=== PATIENT | female | born 1975 | race Caucasian/White ===

== ENCOUNTER → 2016-10-26 | Outpatient (CLI) | payer BC ==
--- NOTE | 2016-10-26 13:21 | MM ---
Reason for exam: clinical finding. History: Family history of breast cancer in maternal cousin at age 40 and breast cancer in paternal grandmother at age 45. Indicated problem(s): pain in the right breast. Physical Findings: Nurse did not find any significant physical abnormalities on exam. MG 3D Diag Mammo W/Cad RT CC and MLO view(s) were taken of the right breast. The breast tissue is heterogeneously dense. This may lower the sensitivity of mammography. Finding #1: There is a 9 mm mass in the inner quadrant, posterior position of the right breast. Finding #2: There are typically benign calcifications in the right breast. These results were verbally communicated with the patient and result sheet given to the patient on 10/26/16. ASSESSMENT: Incomplete: need additional imaging evaluation, BI-RAD 0 RECOMMENDATION: Ultrasound of the right breast.
--- NOTE | 2016-10-26 13:28 | USB ---
Reason for exam: additional evaluation requested from abnormal screening. History: Family history of breast cancer in maternal cousin at age 40 and breast cancer in paternal grandmother at age 45. US Breast Limited RT Right breast ultrasound demonstrates a 7 x 2 x 4mm mixed lesion at 4 o'clock and a 4 x 4 x 5mm solid lesion at the posterior nipple. These results were verbally communicated with the patient and result sheet given to the patient on 10/26/16. ASSESSMENT: Suspicious, BI-RAD 4 RECOMMENDATION: Stereotactic core biopsy of the right breast. Called with mammographic findings and has scheduled an appointment for the patient for 11/03/16 at 12:[address] Madsen. PRELIMINARY REPORT CALLED AND FAXED TO DR. MADSEN ON 10/26/16 AT 300/TP.
== END | disposition home or self-care (01) ==
LOC: RADMAMWWP 09:46
PROVIDERS: ATTEND Surgery
DX: R92.8 Other abnormal and inconclusive findings on diagnostic imaging of breast (principal); Z80.3 Family history of malignant neoplasm of breast
CPT/HCPCS: 76642; G0206; G0279

== ENCOUNTER → 2016-11-04 | Day surgery (SDC) | payer BC ==
--- NOTE | 2016-11-04 09:34 | MM ---
EXAMINATION TYPE: MG stereo VAD BX RT DATE OF EXAM: 11/04/2016 9:19 AM COMPARISON: Previous mammogram dated 10/26/2016 CLINICAL HISTORY: Abnormal mammogram TECHNIQUE: Stereotactic guided core biopsy of right breast. FINDINGS: The procedure of stereotactic guided core biopsy was explained to the patient. Benefits, alternatives, and risks were discussed. An informed consent was then obtained. [facility]. Shortness pathway was a CC approach. I performed the localization, then surgeon, Dr. Ismael He performed the remainder of the procedure. A vacuum assisted biopsy gun was used to obtain multiple core samples. The patient tolerated the procedure well without any immediate complication. The patient was kept in the radiology department for short stay after the procedure and then discharged home in stable condition. IMPRESSION: SUCCESSFUL, UNCOMPLICATED STEREOTACTIC GUIDED CORE BIOPSY OF AREA OF CONCERN IN THE RIGHT BREAST, FULL PATHOLOGY RESULTS TO FOLLOW. Pathology Results: Benign BREAST, RIGHT, CORE BIOPSY: FIBROADENOMA. BACKGROUND FIBROCYSTIC CHANGES INCLUDING FIBROSIS, CYSTS AND APOCRINE METAPLASIA. Recommendation Follow up mammogram of the right breast in 6 months. QUEENIE
--- NOTE | 2016-11-04 16:35 | PCN ---
DATE OF PROCEDURE: PRE-PROCEDURE DIAGNOSIS: Right breast mammographic density of concern. POST-PROCEDURE DIAGNOSIS: Right breast mammographic density of concern. PROCEDURE: Stereotactic core biopsy, right breast density. PROCEDURE: Patient was taken to the stereotactic core room. The area of concern in the right breast was localized. Lidocaine 1% was used to anesthetize the area of concern. Needle was driven to the correct coordinates and multiple core biopsies were obtained. The specimen did appear to contain firmer tissue which appeared to be consistent with the area of concern. Following obtaining the specimens, a marking clip was left behind. Patient tolerated procedure in stable condition. Specimen was sent to Pathology for evaluation.
== END ==
LOC: RADMAMWWP 07:44
PROVIDERS: ATTEND Surgery
DX: D24.1 Benign neoplasm of right breast (principal); N60.31 Fibrosclerosis of right breast; N60.81 Other benign mammary dysplasias of right breast; N64.89 Other specified disorders of breast; R92.8 Other abnormal and inconclusive findings on diagnostic imaging of breast; Z88.1 Allergy status to other antibiotic agents; Z88.8 Allergy status to other drugs, medicaments and biological substances
CPT/HCPCS: 88305; 19081; A4648

== ENCOUNTER → 2016-11-07 | Day surgery (SDC) | payer BC ==
[~2016-11-07] MED LIST: ALPRAZolam 0.25 MG TAB ONE; BACITRACIN OINT 1 EACH PACKET TOPICAL ONE; LIDOCAINE 1% INJ 10MG/ML (20 ML MDV) ONE; LIDOCAINE 1%-EPI 1:100,000 20 ML VIAL ONE; SODIUM BICARB 4% 5 ML VIAL (0.48 MEQ/ML) ONE
--- NOTE | 2016-11-07 11:27 | USB ---
EXAMINATION TYPE: US biopsy breast VAD RT DATE OF EXAM: 11/07/2016 11:05 AM CLINICAL HISTORY: R92.8 ABN MAMMOGRAM. TECHNIQUE: Ultrasound guided core biopsy of right breast. COMPARISON: Previous ultrasound dated 10/26/2016. FINDINGS: The procedure of ultrasound guided core biopsy was explained to the patient. Benefits, alternatives, and risks were discussed. An informed consent was then obtained. The patient was placed in supine positioning for imaging and for the procedure. The overlying skin was prepped and draped in usual sterile fashion. Lidocaine buffered with bicarbonate was used as anesthetic into the skin and subcutaneous tissue up to area of concern in the right breast. A teena was made with surgical scalpel. Under ultrasound guidance, a 12-gauge vacuum assisted biopsy gun device was used to obtain 6 core samples. Following this, a biopsy clip was left in lesion. The patient tolerated the procedure well without any immediate complication. The patient was kept in the radiology department for short stay after the procedure and then discharged home in stable condition. Pathology is pending. IMPRESSION: Successful, uncomplicated ultrasound guided core biopsy of area of concern in the right breast, full pathology results to follow. Pathology Results: Benign BREAST, CORE BIOPSY: FIBROCYSTIC CHANGES INCLUDING FIBROSIS, CYSTS AND MILD USUAL TYPE DUCTAL HYPERPLASIA. Recommendation Follow up ultrasound of the right breast in 6 months. EMILYD
== END ==
LOC: RADUSWWP 09:40
PROVIDERS: ATTEND Surgery
DX: N60.31 Fibrosclerosis of right breast (principal); N60.91 Unspecified benign mammary dysplasia of right breast; N64.89 Other specified disorders of breast; R92.8 Other abnormal and inconclusive findings on diagnostic imaging of breast; Z88.1 Allergy status to other antibiotic agents; Z88.8 Allergy status to other drugs, medicaments and biological substances
CPT/HCPCS: 88305; 19083; J2001

== ENCOUNTER → 2017-03-20 | Outpatient (CLI) | payer BC ==
--- NOTE | 2017-03-20 10:36 | US ---
EXAMINATION TYPE: US abdomen complete DATE OF EXAM: 03/20/2017 COMPARISON: NONE CLINICAL HISTORY: R10.84 ABD PAIN. EXAM MEASUREMENTS: Liver Length: 16.4 cm Gallbladder Wall: 0.1 cm CBD: 0.5 cm Spleen: 10.9 cm Right Kidney: 11.5 x 5.9 x 6.8 cm Left Kidney: 12.9 x 5.6 x 7.5 cm Pancreas: wnl Liver: Coarse echotexture, no masses Gallbladder: stones Evidence for sonographic Marrero's sign: yes CBD: wnl Spleen: wnl Right Kidney: No hydronephrosis or masses seen Left Kidney: wnl Upper IVC: wnl Abd Aorta: wnl Coarse echotexture of liver with no definitive mass. Gall stones. The liver is somewhat coarsened. The intrahepatic portion of the IVC and proximal abdominal aorta ar e within normal limits. There is evidence of cholelithiasis. Common bile duct is unremarkable. The visualized portions of the pancreas are homogenous. The spleen is unremarkable. Kidneys are symmet kei and free of hydronephrosis. No renal lesions are seen. IMPRESSION: 1. Cholelithiasis 2. Nonspecific pattern of liver can be seen with fatty infiltration, hepatitis or hepatocellular dise ase.
[2017-03-20 11:09] LABS: Basophils % (A) 1 %; CH 30.9; CHCM 34.3; Eosinophils # (A) 0.1 k/uL (0-0.7); Eosinophils % (A) 2 %; HCT 44.6 % (34.0-46.0); HDW 2.59; HGB 14.6 gm/dL (11.4-16.0); Luc # (Auto) 0.11; Luc % (Auto) 2; Lymphocytes # (A) 1.7 k/uL (1.0-4.8); Lymphocytes % (A) 29 %; MCH 29.7 pg (25.0-35.0); MCHC 32.8 g/dL (31.0-37.0); MCV 90.5 fL (80.0-100.0); Mean Platelet Volume 7.3; Monocytes # (A) 0.3 k/uL (0-1.0); Monocytes % (A) 5 %; Neutrophils # (A) 3.6 k/uL (1.3-7.7); Neutrophils % (A) 61 %; RBC 4.93 m/uL (3.80-5.40); RDW 13.5 % (11.5-15.5); WBC 5.8 k/uL (3.8-10.6); WBC (Perox) 5.93
[2017-03-20 11:32] LABS: ALT 69 U/L (9-52); AST 51 U/L (14-36); Alkaline Phosphatase 63 U/L (38-126); Amylase 54 U/L (30-110); Anion Gap 12 mmol/L; Blood Urea Nitrogen 12 mg/dL (7-17); Calcium 9.7 mg/dL (8.4-10.2); Carbon Dioxide 26 mmol/L (22-30); Chloride 104 mmol/L (98-107); Cholesterol 174 mg/dL (<200); Glucose 89 mg/dL (74-99); HDL Cholesterol 41 mg/dL (40-60); Non-African American GFR(MDRD) >60 (>60 ml/min/1.73 sqM); Potassium 4.5 mmol/L (3.5-5.1); Sodium 142 mmol/L (137-145); Total Bilirubin 0.6 mg/dL (0.2-1.3); Total Protein 6.7 g/dL (6.3-8.2)
== END | disposition home or self-care (01) ==
LOC: RADUSWWP 09:55
PROVIDERS: ATTEND Internal Medicine Geriatric Medicine
DX: K80.20 Calculus of gallbladder without cholecystitis without obstruction (principal); R10.84 Generalized abdominal pain; N95.1 Menopausal and female climacteric states; E78.4 Other hyperlipidemia; F90.9 Attention-deficit hyperactivity disorder, unspecified type
CPT/HCPCS: 76700; 80053; 80061; 82150; 83001; 83002; 83690; 84439; 84443; 85025

== ENCOUNTER 2017-04-09 18:39 | Observation (INO) | payer BC ==
[2017-04-09] MEDS ORDERED: SODIUM CHLORIDE 0.9% 1,000 ML IV STA (19:01)
[2017-04-09] MEDS ORDERED: HYDROmorphone 1 MG/ML 1 ML SYRINGE IVP STA ×2 (19:01→19:50)
--- NOTE | 2017-04-09 19:04 | ED ---
Abdominal Pain HPI - General Chief Complaint: Abdominal Pain Stated Complaint: ABD pain Time Seen by Provider: 04/09/17 18:52 Source: patient, RN notes reviewed Mode of arrival: ambulatory Limitations: no limitations - History of Present Illness Initial Comments: 41-year-old female presents emergency Department chief complaint increased abdominal pain. Patient states she was diagnosed with stones and has surgery scheduled for April [address] Fernandez. She states the last night she had increased pain states that the pain has gotten worse. Patient states that she' s been vomiting throughout the night and did call Dr. Fernandez today who recommended to go to the emergency Department to have her labs checked, possibly start antibiotics and surgery for tomorrow. Patient states that she was in [facility] and had to drive back. She states pain is not worsened does radiate to her back. She denies any chest pain or shortness breath. Denies any diarrhea, constipation, fever, chills, dysuria or hematuria. She states that she has been on a more liquid diet as directed by Dr. Fernandez and she states this is not helping. - Related Data Home Medications Medication Instructions Recorded Confirmed Methylphenidate HCl [Concerta] 36 mg PO DAILY PRN 06/22/16 04/09/17 Methylphenidate HCl [Concerta] 18 mg PO DAILY 04/09/17 04/09/17 Varenicline [Chantix] 1 mg PO HS 04/09/17 04/09/17 Allergies Allergy/AdvReac Type Severity Reaction Status Date / Time loracarbef [From Lorabid] Allergy Unknown Verified 04/09/17 19:41 metronidazole [From Flagyl] Allergy Swelling Verified 04/09/17 19:41 amoxicillin AdvReac Nausea & Verified 04/09/17 19:41 Vomiting Review of Systems ROS Statement: Those systems with pertinent positive or pertinent negative responses have been documented in the HPI. ROS Other: All systems not noted in ROS Statement are negative. Past Medical History Past Medical History: No Reported History History of Any Multi-Drug Resistant Organisms: None Reported Past Surgical History: Orthopedic Surgery Additional Past Surgical History / Comment(s): bladder sling carpel tunnel dental implant Past Psychological History: Anxiety, Depression Smoking Status: Current every day smoker Past Alcohol Use History: None Reported Past Drug Use History: None Reported General Exam Limitations: no limitations General appearance: alert, in no apparent distress Head exam: Present: atraumatic, normocephalic, normal inspection Neck exam: Present: normal inspection, full ROM. Absent: tenderness, meningismus, lymphadenopathy Respiratory exam: Present: normal lung sounds bilaterally. Absent: respiratory distress, wheezes, rales, rhonchi, stridor Cardiovascular Exam: Present: regular rate, normal rhythm, normal heart sounds. Absent: systolic murmur, diastolic murmur, rubs, gallop, clicks GI/Abdominal exam: Present: soft, tenderness (Mild to moderate RUQ tenderness), normal bowel sounds. Absent: distended, guarding, rebound, rigid Course Vital Signs 04/09/17 18:45 Temperature 98.6 F Pulse Rate 77 Respiratory 20 Rate Blood Pressure 151/89 O2 Sat by Pulse 99 Oximetry Medical Decision Making - Medical Decision Making Dr. Fernandez did contact me in the emergency Department regarding her patient. Patient will be admitted to her service on IV antibiotics, IV fluids and scheduled for surgery tomorrow. Disposition Clinical Impression: Cholelithiasis, Intractable abdominal pain, Nausea & vomiting Disposition: ADMITTED IP TO THIS HOSP Condition: Fair Referrals: Alexandre Cano MD [Primary Care Provider] - 1-2 days
[2017-04-09] MEDS: ONDANSETRON 4 MG/2 ML VIAL IVP STA (19:22)
[2017-04-09 19:45] LABS: Basophils % (A) 0 %; CH 31.3; CHCM 35.1; Eosinophils # (A) 0.1 k/uL (0-0.7); Eosinophils % (A) 1 %; HCT 43.8 % (34.0-46.0); HDW 2.59; HGB 14.6 gm/dL (11.4-16.0); Luc # (Auto) 0.12; Luc % (Auto) 2; Lymphocytes # (A) 1.2 k/uL (1.0-4.8); Lymphocytes % (A) 17 %; MCH 29.9 pg (25.0-35.0); MCHC 33.3 g/dL (31.0-37.0); MCV 89.7 fL (80.0-100.0); Mean Platelet Volume 7.8; Monocytes # (A) 0.4 k/uL (0-1.0); Monocytes % (A) 5 %; Neutrophils # (A) 5.5 k/uL (1.3-7.7); Neutrophils % (A) 76 %; RBC 4.88 m/uL (3.80-5.40); RDW 13.6 % (11.5-15.5); WBC 7.3 k/uL (3.8-10.6); WBC (Perox) 6.84
[2017-04-09 19:47] LABS: Partial Thromboplastin Time 22.6 sec (22.0-30.0); Prothrombin Time 9.8 sec (9.0-12.0)
[2017-04-09] MEDS ORDERED: NALOXONE 0.4 MG/ML 1 ML VIAL IV PRN (19:48)
[2017-04-09] MEDS ORDERED: ONDANSETRON 4 MG/2 ML VIAL IVP PRN (19:48)
[2017-04-09 19:50] LABS: ALT 496 U/L (9-52); AST 555 U/L (14-36); Alkaline Phosphatase 82 U/L (38-126); Amylase 50 U/L (30-110); Anion Gap 9 mmol/L; Blood Urea Nitrogen 12 mg/dL (7-17); Calcium 9.9 mg/dL (8.4-10.2); Carbon Dioxide 21 mmol/L (22-30); Chloride 109 mmol/L (98-107); Glucose 101 mg/dL (74-99); Non-African American GFR(MDRD) >60 (>60 ml/min/1.73 sqM); Potassium 4.2 mmol/L (3.5-5.1); Sodium 139 mmol/L (137-145); Total Bilirubin 0.9 mg/dL (0.2-1.3); Total Protein 6.9 g/dL (6.3-8.2)
[2017-04-09] MEDS ORDERED: LACTATED RINGERS 1,000 ML IV ONE (19:51)
[2017-04-09] MEDS ORDERED: PIPERACILLIN-TAZOBACTAM 3.375 GM in DEXTROSE/WATER 1 50ML.BAG IVPB STA (19:52)
[2017-04-09] MEDS ORDERED: LEVOFLOXACIN 750MG-D5W PMX 750 MG in DEXTROSE/WATER 1 150ML.BAG IVPB STA (19:53)
[2017-04-09 20:01] LABS: Appearance,Urine Clear (Clear); Bacteria,Urine Rare /hpf; Bilirubin,Urine Negative (Negative); Glucose,Urine (UA) Negative (Negative); Ketones,Urine Negative (Negative); Leukocyte Esterase,Urine Small (Negative); Mucus,Urine Rare /hpf; Nitrite,Urine Negative (Negative); Particle Count 3328; Protein,Urine Negative (Negative); Specific Gravity,Urine 1.014 (1.001-1.035); Squamous Epithelial Cell,Urine <1 /hpf (0-4); UA Billing (MACRO vs. MICRO) MICRO; Urobilinogen,Urine <2.0 mg/dL (<2.0); WBC,Urine 1 /hpf (0-5)
[2017-04-09] MEDS: SODIUM CHLORIDE 0.9% 1,000 ML IV SCH (21:54)
[2017-04-09] MEDS: HYDROmorphone 1 MG/ML 1 ML SYRINGE IV PRN (22:38)
[2017-04-09] MEDS: ALPRAZolam 0.5 MG TAB PO PRN (23:39)
[2017-04-10 00:18] VITALS: BMI 34.0
[2017-04-10] MEDS: PIPERACILLIN-TAZOBACTAM 3.375 GM in DEXTROSE/WATER 1 50ML.BAG IVPB SCH ×3 (00:24→15:03)
[2017-04-10] MEDS ORDERED: PIPERACILLIN-TAZOBACTAM 3.375 GM in DEXTROSE/WATER 1 50ML.BAG IVPB SCH (02:00)
[2017-04-10] MEDS: SODIUM CHLORIDE 0.9% 1,000 ML IV SCH ×2 (08:32→13:21)
[2017-04-10 09:00] LABS: Basophils % (A) 1 %; CH 31.2; CHCM 34.3; Eosinophils # (A) 0.1 k/uL (0-0.7); Eosinophils % (A) 2 %; HCT 41.8 % (34.0-46.0); HDW 2.58; HGB 13.5 gm/dL (11.4-16.0); Luc # (Auto) 0.09; Luc % (Auto) 2; Lymphocytes # (A) 1.5 k/uL (1.0-4.8); Lymphocytes % (A) 31 %; MCH 29.7 pg (25.0-35.0); MCHC 32.4 g/dL (31.0-37.0); MCV 91.5 fL (80.0-100.0); Mean Platelet Volume 8.5; Monocytes # (A) 0.3 k/uL (0-1.0); Monocytes % (A) 6 %; Neutrophils # (A) 2.9 k/uL (1.3-7.7); Neutrophils % (A) 59 %; RBC 4.56 m/uL (3.80-5.40); RDW 13.5 % (11.5-15.5); WBC 4.9 k/uL (3.8-10.6)
--- NOTE | 2017-04-10 09:04 | P.GSHP ---
<Devorah Alves M - Last Filed: 04/10/17 09:05> History of Present Illness H&P Date: 04/10/17 Chief Complaint: Abdominal pain 41-year-old female presented to the emergency room on the day of admission with a chief complaint of developing "excruciating sharp constant right upper quadrant abdominal pain radiating across the abdomen". Patient states she had [place] when she woke up at 3 in the morning with a sharp excruciating pain could not tolerated. Patient states she was diagnosed with gallstones and was scheduled to have surgery on April [address] fernandez . Patient stated that she just could not tolerate the pain left her cabin and drove down to the [facility] emergency room to be evaluated for the above-mentioned symptoms patient stated the pain was excruciating cause a sensation of nausea. Patient states that there was no fever chills burning on urination frequency urgency. Patient states that she was not experiencing any diarrhea or constipation. Patient states that she has been consistent with the high-protein liquid diet for the past several weeks and has lost a couple pounds. Currently the patient is aware of the plan of care is scheduled this morning for a lap cholecystectomy per . Patient does state the pain medication is effective for pain control. Patient currently is denying any chest pain dizziness or lightheadedness or shortness of breath when questioning - Review of Systems Comment: Essentially unremarkable except as mentioned in the present illness Past Medical History Past Medical History: No Reported History History of Any Multi-Drug Resistant Organisms: None Reported Past Surgical History: Orthopedic Surgery Additional Past Surgical History / Comment(s): bladder sling,carpel tunnel, dental implant,right knee laproscopic,bilateral breast biopsy with right titanium pin implant Past Anesthesia/Blood Transfusion Reactions: No Reported Reaction Additional Past Anesthesia/Blood Transfusion Reaction / Comment(s): no history of blood transfusion Past Psychological History: Anxiety, Depression Smoking Status: Current some day smoker Past Alcohol Use History: None Reported Past Drug Use History: None Reported - Past Family History Mother Family Medical History: Diabetes Mellitus, Hypertension Father Family Medical History: Myocardial Infarction ([place]) Medications and Allergies Home Medications Medication Instructions Recorded Confirmed Type Methylphenidate HCl [Concerta] 36 mg PO DAILY PRN 06/22/16 04/09/17 History ALPRAZolam [Xanax] 1 mg PO Q8HR PRN 04/09/17 04/09/17 History Methylphenidate HCl [Concerta] 18 mg PO DAILY 04/09/17 04/09/17 History Varenicline [Chantix] 1 mg PO HS 04/09/17 04/09/17 History Allergies Allergy/AdvReac Type Severity Reaction Status Date / Time loracarbef [From Lorabid] Allergy Unknown Verified 04/10/17 09:32 metronidazole [From Flagyl] Allergy Swelling Verified 04/10/17 09:32 amoxicillin AdvReac Nausea & Verified 04/10/17 09:32 Vomiting Surgical - Exam Vital Signs Temp Pulse Resp BP Pulse Ox 98.6 F 77 20 151/89 99 04/09/17 18:45 04/09/17 18:45 04/09/17 18:45 04/09/17 18:45 04/09/17 18:45 GENERAL APPEARANCE: 41-year-old female patient is alert, oriented, in no acute distress. States just received pain medication which is effective for pain control VITAL SIGNS: Reviewed HEENT: Head is normocephalic and atraumatic. Pupils are equal and reactive. The nares are patent. Oropharynx is clear without lesions. NECK: Supple without lymphadenopathy. Traches midline. HEART: S1, S2. Regular rate and rhythm. No murmur noted denying chest pain when questioning LUNGS: No crackles or wheezes are heard. Adequate air movement bilaterally on room air ABDOMEN: Soft, slight tenderness to the right upper quadrant nondistended with good bowel sounds. No peritoneal signs. No palpable organomegaly or masses. Currently denying any loose stools constipation or change in bowel habits reports a nausea sensation no active emesis EXTREMITIES: Normal skin color and turgor. No cyanosis, rash, ulceration, clubbing or edema. Radial pedal pulses are 2/4 bilaterally. NEUROLOGICAL: No focal deficits. Strength and sensation are grossly intact. Results - Labs 04/09/17 19:15 04/09/17 19:15 Abnormal Lab Results - Last 24 Hours (Table) 04/09/17 04/09/17 Range/Units 19:15 19:15 Chloride 109 H (98-107) mmol/L Carbon Dioxide 21 L (22-30) mmol/L Glucose 101 H (74-99) mg/dL AST 555 H (14-36) U/L ALT 496 H (9-52) U/L Ur Leukocyte Esterase Small H (Negative) Urine Bacteria Rare H (None) /hpf Urine Mucus Rare H (None) /hpf Diabetes panel 04/09/17 Range/Units 19:15 Sodium 139 (137-145) mmol/L Potassium 4.2 (3.5-5.1) mmol/L Chloride 109 H (98-107) mmol/L Carbon Dioxide 21 L (22-30) mmol/L BUN 12 (7-17) mg/dL Creatinine 0.60 (0.52-1.04) mg/dL Glucose 101 H (74-99) mg/dL Calcium 9.9 (8.4-10.2) mg/dL AST 555 H (14-36) U/L ALT 496 H (9-52) U/L Alkaline Phosphatase 82 (38-126) U/L Total Protein 6.9 (6.3-8.2) g/dL Albumin 4.4 (3.5-5.0) g/dL Calcium panel 04/09/17 Range/Units 19:15 Calcium 9.9 (8.4-10.2) mg/dL Albumin 4.4 (3.5-5.0) g/dL Pituitary panel 04/09/17 Range/Units 19:15 Sodium 139 (137-145) mmol/L Potassium 4.2 (3.5-5.1) mmol/L Chloride 109 H (98-107) mmol/L Carbon Dioxide 21 L (22-30) mmol/L BUN 12 (7-17) mg/dL Creatinine 0.60 (0.52-1.04) mg/dL Glucose 101 H (74-99) mg/dL Calcium 9.9 (8.4-10.2) mg/dL Adrenal panel 04/09/17 Range/Units 19:15 Sodium 139 (137-145) mmol/L Potassium 4.2 (3.5-5.1) mmol/L Chloride 109 H (98-107) mmol/L Carbon Dioxide 21 L (22-30) mmol/L BUN 12 (7-17) mg/dL Creatinine 0.60 (0.52-1.04) mg/dL Glucose 101 H (74-99) mg/dL Calcium 9.9 (8.4-10.2) mg/dL Total Bilirubin 0.9 (0.2-1.3) mg/dL AST 555 H (14-36) U/L ALT 496 H (9-52) U/L Alkaline Phosphatase 82 (38-126) U/L Total Protein 6.9 (6.3-8.2) g/dL Albumin 4.4 (3.5-5.0) g/dL Assessment and Plan Plan: Impression Present on admission acute intractable episode of diffuse abdominal pain right upper quadrant nausea vomiting suspect due to cholelithiasis Present on admission elevated AST and ALT Current every day smoker on chantix Anxiety nonspecifieed History of attention deficit on concerta Plan Continue nothing by mouth scheduled for a lap cholecystectomy possible open per IV Zosyn as ordered Pain control DVT and GI prophylaxis IV fluid as ordered Further recommendations pending The above impression and plan of care have been discussed and directed by signing physician. Devorah Alves nurse practitioner acting as scribe for signing physician. <Emily Fernandez - Last Filed: 04/10/17 10:06> Surgical - Exam Vital Signs Temp Pulse Resp BP Pulse Ox 98.6 F 77 20 151/89 99 04/09/17 18:45 04/09/17 18:45 04/09/17 18:45 04/09/17 18:45 04/09/17 18:45 Results - Labs 04/10/17 08:44 04/10/17 08:44 Abnormal Lab Results - Last 24 Hours (Table) 04/09/17 04/09/17 04/10/17 Range/Units 19:15 19:15 08:44 Chloride 109 H 109 H (98-107) mmol/L Carbon Dioxide 21 L (22-30) mmol/L Glucose 101 H (74-99) mg/dL AST 555 H 238 H (14-36) U/L ALT 496 H 343 H (9-52) U/L Total Protein 5.8 L (6.3-8.2) g/dL Ur Leukocyte Esterase Small H (Negative) Urine Bacteria Rare H (None) /hpf Urine Mucus Rare H (None) /hpf Diabetes panel 04/09/17 04/10/17 Range/Units 19:15 08:44 Sodium 139 140 (137-145) mmol/L Potassium 4.2 4.0 (3.5-5.1) mmol/L Chloride 109 H 109 H (98-107) mmol/L Carbon Dioxide 21 L 23 (22-30) mmol/L BUN 12 9 (7-17) mg/dL Creatinine 0.60 0.80 (0.52-1.04) mg/dL Glucose 101 H 89 (74-99) mg/dL Calcium 9.9 8.7 (8.4-10.2) mg/dL AST 555 H 238 H (14-36) U/L ALT 496 H 343 H (9-52) U/L Alkaline Phosphatase 82 57 (38-126) U/L Total Protein 6.9 5.8 L (6.3-8.2) g/dL Albumin 4.4 3.6 (3.5-5.0) g/dL Calcium panel 04/09/17 04/10/17 Range/Units 19:15 08:44 Calcium 9.9 8.7 (8.4-10.2) mg/dL Albumin 4.4 3.6 (3.5-5.0) g/dL Pituitary panel 04/09/17 04/10/17 Range/Units 19:15 08:44 Sodium 139 140 (137-145) mmol/L Potassium 4.2 4.0 (3.5-5.1) mmol/L Chloride 109 H 109 H (98-107) mmol/L Carbon Dioxide 21 L 23 (22-30) mmol/L BUN 12 9 (7-17) mg/dL Creatinine 0.60 0.80 (0.52-1.04) mg/dL Glucose 101 H 89 (74-99) mg/dL Calcium 9.9 8.7 (8.4-10.2) mg/dL Adrenal panel 04/09/17 04/10/17 Range/Units 19:15 08:44 Sodium 139 140 (137-145) mmol/L Potassium 4.2 4.0 (3.5-5.1) mmol/L Chloride 109 H 109 H (98-107) mmol/L Carbon Dioxide 21 L 23 (22-30) mmol/L BUN 12 9 (7-17) mg/dL Creatinine 0.60 0.80 (0.52-1.04) mg/dL Glucose 101 H 89 (74-99) mg/dL Calcium 9.9 8.7 (8.4-10.2) mg/dL Total Bilirubin 0.9 0.8 (0.2-1.3) mg/dL AST 555 H 238 H (14-36) U/L ALT 496 H 343 H (9-52) U/L Alkaline Phosphatase 82 57 (38-126) U/L Total Protein 6.9 5.8 L (6.3-8.2) g/dL Albumin 4.4 3.6 (3.5-5.0) g/dL Assessment and Plan Plan: Plan for lap seng possible open
[2017-04-10 09:16] LABS: ALT 343 U/L (9-52); AST 238 U/L (14-36); Alkaline Phosphatase 57 U/L (38-126); Amylase 43 U/L (30-110); Anion Gap 8 mmol/L; Blood Urea Nitrogen 9 mg/dL (7-17); Calcium 8.7 mg/dL (8.4-10.2); Carbon Dioxide 23 mmol/L (22-30); Chloride 109 mmol/L (98-107); Glucose 89 mg/dL (74-99); Non-African American GFR(MDRD) >60 (>60 ml/min/1.73 sqM); Sodium 140 mmol/L (137-145); Total Bilirubin 0.8 mg/dL (0.2-1.3); Total Protein 5.8 g/dL (6.3-8.2)
[2017-04-10] MEDS ORDERED: IV FLUID CONTINUATION 1,000 ML IV ONE (09:47)
[2017-04-10] MEDS ORDERED: DEXAMETHASONE SOD PHOS (MDV) 100 MG/10 ML VIAL IV ONE (09:53)
[2017-04-10] MEDS: ONDANSETRON 4 MG/2 ML VIAL IVP STA (09:53)
[2017-04-10] MEDS ORDERED: SCOPOLAMINE 1.5MG/72HR PATCH TRANSDERM ONE (09:54)
[2017-04-10] MEDS ORDERED: HEPARIN SODIUM,PORCINE 5,000 UNIT/ML 1 ML VIAL SQ ONE (10:03)
[2017-04-10] MEDS ORDERED: BUPIVACAINE-EPI 0.5%-1:200,000 10 ML VIAL SQ ONE (10:30)
[2017-04-10] MEDS ORDERED: GLYCOPYRROLATE 0.2 MG/ML 2 ML VIAL ONE (10:31)
[2017-04-10] MEDS ORDERED: ROCURONIUM BROMIDE 10 MG/ML 10 ML VIAL IV ONE (10:31)
[2017-04-10] MEDS ORDERED: NEOSTIGMINE 1 MG/ML 10 ML VIAL ONE (10:31)
[2017-04-10] MEDS ORDERED: fentaNYL (PF) 50 MCG/ML 2 ML AMP ONE (10:31)
[2017-04-10] MEDS ORDERED: PROPOFOL 10 MG/ML 20 ML VIAL IV ONE (10:31)
[2017-04-10] MEDS ORDERED: LIDOCAINE 1% INJ 10MG/ML (20 ML MDV) ONE (10:31)
[2017-04-10] MEDS ORDERED: SUCCINYLCHOLINE CHLORIDE 100 MG/5 ML SYR IV ONE (10:31)
[2017-04-10] MEDS ORDERED: MIDAZOLAM 2 MG/2 ML VIAL ONE (10:31)
--- NOTE | 2017-04-10 11:37 | P.OP ---
Date of Procedure: 04/10/17 Preoperative Diagnosis: Acute calculus cholecystitis Obesity BMI 34 Postoperative Diagnosis: Same Procedure(s) Performed: Laparoscopic cholecystectomy possible open Implants: NA Anesthesia: GETA Surgeon: Emily Fernandez Pathology: other Condition: stable Disposition: PACU Indications for Procedure: 41 years old female presented with sharp right upper quadrant pain. Known history of gallstones. Informed consent obtained and she elected to undergo lap disc cholecystectomy possible open. Operative Findings: Acute calculus cholecystitis Fatty liver disease Description of Procedure: The patient was brought to the operating room and placed in supine position with both arms out. General anesthesia with endotracheal intubation was performed as per anesthesia team. Chlorhexidine was used to prep the abdomen followed by application of sterile drapes. A timeout was performed to verify correct patient and correct procedure. Patient was confirmed to receive perioperative IV antibiotics , heparin 5000 units subcutaneous injection and bilateral SCDs were placed. A 5 mm skin incision was made below the left costal margin at the anterior axillary line. A Veress needle was inserted and pneumoperitoneum was established to a pressure of 15 mmHg. A 5 mm Optiview trocar was loaded on a 5 mm 30 laparoscope and the peritoneal cavity was entered under direct vision using the Optiview technique. Additional 5 mm trocar was placed in the supraumbilical location and two 5 mm trocars along the right subcostal margin. The left 5 mm trocar was upsized to 10mm. The patient was placed in reverse Trendelenburg with right side up. The liver is enlarged consistent with fatty liver disease The fundus of the gallbladder was grasped with an atraumatic grasper and was retracted over the dome of the liver. The infundibulum was grasped with an atraumatic grasper and retracted towards the pelvis to expose the Calot's triangle. Lateral and medial peritoneal attachment of the gallbladder bladder was dissected. Circumferential dissection was carried out around the cystic artery and the cystic duct to obtain adequate length for clip application. All the surrounding fibrofatty tissue were removed. Critical view was obtained with cystic duct and cystic artery as the only two structures entering the gallbladder. Two clips were applied on the patient's side and one on the specimen side on the cystic duct first followed by the cystic artery. Endoshears were used to divide the cystic duct and the cystic artery. The gallbladder was taken off the liver bed using a L-hook. It was placed in an endocatch specimen bag and removed through the 10mm port. The gallbladder was passed off as a specimen. The abdominal cavity was inspected. The clips on the cystic duct and cystic artery stump were intact and no bleeding noted from the liver bed. All the trocar sites were examined and no evidence of bleeding. The 10mm port site was closed with two transfascial sutures of 0 Vicryl using a Wilner Angus device. The pneumoperitoneum was evacuated and all the trocars were removed. Local anesthetic was infiltrated along the trocar sites and incisions were closed using 4-0 Monocryl followed by application of Dermabond skin glue. The sponge, instrument and needle count were correct x2. Patient was extubated and taken to post anesthesia care unit in stable condition.
[2017-04-10 11:54] LABS: Glucose,Whole Blood 168 mg/dL (75-99)
[2017-04-10] MEDS ORDERED: HYDROmorphone 1 MG/ML 1 ML SYRINGE IVP ONE ×4 (12:09→12:25)
[2017-04-10] MEDS ORDERED: ONDANSETRON 4 MG/2 ML VIAL IVP ONE (12:11)
[2017-04-10] MEDS ORDERED: LACTATED RINGERS 1,000 ML IV ONE (12:52)
[2017-04-10] MEDS: HYDROmorphone 1 MG/ML 1 ML SYRINGE IV PRN ×3 (13:20→22:26)
[2017-04-10] MEDS: ALPRAZolam 0.5 MG TAB PO PRN ×2 (14:23→22:30)
[2017-04-10] MEDS ORDERED: HYDROmorphone 1 MG/ML 1 ML SYRINGE IM STA (14:33)
--- NOTE | 2017-04-10 14:53 | P.PN ---
Progress Note - Text Patient returned from having a lap cholecystectomy this morning patient states she cannot tolerate the pain having a "terrible pain cannot go home. Patient is requesting an increase in her pain medication. Patient did receive dilaudid .5mg iv which the patient states it did not help. Abdomen is soft not distended surgical sites benign no redness. Patient is sitting up in the bed left undisturbed close his eyes and doses off. Will increase the pain med to iv dilaudid 1 mg every 3 hours when necessary for pain will not discharge patient home today will reevaluate in the morning
[2017-04-10] MEDS: HYDROcodone/APAP 7.5-325MG 1 EACH TAB PO PRN ×2 (16:13→20:09)
[2017-04-11] MEDS: PIPERACILLIN-TAZOBACTAM 3.375 GM in DEXTROSE/WATER 1 50ML.BAG IVPB SCH ×3 (00:02→16:44)
[2017-04-11] MEDS: HYDROcodone/APAP 7.5-325MG 1 EACH TAB PO PRN ×5 (00:02→17:59)
[2017-04-11] MEDS: HYDROmorphone 1 MG/ML 1 ML SYRINGE IV PRN (03:07)
--- NOTE | 2017-04-11 09:24 | P.PN ---
Subjective 41-year-old female being seen on rounds this morning. Patient is postop 10 of April laparoscopic cholecystectomy for acute callus cholecystitis. Patient continues to report having abdominal discomfort. Patient's been encouraged to ambulate in the hallway. Surgical sites dry. No reports the nausea vomiting afebrile did discuss with the patient tentative plan is to discharge the patient this afternoon patient verbalizes an understanding Objective - Vital Signs Vital signs: Vital Signs Temp 98 F 04/11/17 04:18 Pulse 81 04/11/17 04:18 Resp 17 04/11/17 04:18 BP 114/71 04/11/17 04:18 Pulse Ox 95 04/11/17 04:18 Intake & Output 04/10/17 04/11/17 04/11/17 18:59 06:59 18:59 Intake Total 1500 2100 Output Total 803 600 Balance 697 1500 Intake: IV 1500 600 Sodium Chloride 0.9% 1, 600 000 ml @ 75 mls/hr IV . [id number] SHELBI Rx#:[id number] Intake, IV Titration 50 Amount Piperacillin-Tazobactam 3 50 .375 gm In Dextrose/Water 1 50ml.bag @ 12.5 mls/hr IVPB Q8HR SHELBI Rx#: [id number] Oral 1450 Output: Urine 800 600 Estimated Blood Loss 3 Other: Voiding Method Toilet # Voids 4 - Exam Physical exam 41-year-old female resting in bed does not appear in any acute distress. Tolerating diet l lungs essentially clear adequate air movement on room air Heart S1-S2 audible and regular Abdomen surgical sites from the lap cholecystectomy dry no redness no tenderness all tones present passing gas no nausea Extremities no edema Venodyne's on bilaterally - Labs CBC & Chem 7: 04/10/17 08:44 04/10/17 08:44 Labs: Abnormal Lab Results - Last 24 Hours (Table) 04/10/17 Range/Units 11:52 POC Glucose (mg/dL) 168 H (75-99) mg/dL Assessment and Plan Plan: Impression Present on admission acute intractable episode of diffuse abdominal pain right upper quadrant nausea vomiting suspect due to cholelithiasis Present on admission elevated AST and ALT Current every day smoker on chantix Anxiety nonspecifieed History of attention deficit on concerta Status post laparoscopic cholecystectomy for acute calculus cholecystitis done on [place] 28 Plan Increase activity Continue postop surgical care IV Zosyn as ordered Pain control DVT and GI prophylaxis IV fluid as ordered Further recommendations pending The above impression and plan of care have been discussed and directed by signing physician. Devorah Alves nurse practitioner acting as scribe for signing physician.
[2017-04-11] MEDS: ALPRAZolam 0.5 MG TAB PO PRN ×2 (09:42→18:09)
--- NOTE | 2017-04-11 13:30 | P.DS ---
Providers Date of admission: 04/09/17 19:47 Expected date of discharge: 04/11/17 Attending physician: Emily Fernandez Primary care physician: [facility] Course: 41-year-old female presented to the emergency room on the day of admission with a chief complaint of developing "excruciating sharp constant right upper quadrant abdominal pain radiating across the abdomen". Patient states she had been up [place] when she woke up at 3 in the morning with a sharp excruciating pain could not tolerated. Patient states she was diagnosed with gallstones and was scheduled to have surgery on April [address] fernandez . Patient stated that she just could not tolerate the pain left her cabin and drove down to the [facility] emergency room to be evaluated for the above-mentioned symptoms patient stated the pain was excruciating cause a sensation of nausea. Patient states that there was no fever chills burning on urination frequency urgency. Patient states that she was not experiencing any diarrhea or constipation. Patient states that she has been consistent with the high-protein liquid diet for the past several weeks and has lost a couple pounds. Patient was seen by surgical service with recommendations to proceed with a laparoscopic cholecystectomy in which the patient elected to do Patient is postop 10 of April laparoscopic cholecystectomy for acute callus cholecystitis. Impression Present on admission acute intractable episode of diffuse abdominal pain right upper quadrant nausea vomiting suspect due to cholelithiasis Present on admission elevated AST and ALT Current every day smoker on chantix Anxiety nonspecifieed History of attention deficit on concerta Status post laparoscopic cholecystectomy for acute calculus cholecystitis done on April 10 The above impression and plan of care have been discussed and directed by signing physician. Devorah Alves nurse practitioner acting as scribe for signing physician. Patient Condition at Discharge: Fair Plan - Discharge Summary New Discharge Prescriptions: New HYDROcodone/APAP 5-325MG [Choudrant 5-325] 1 tab PO Q4HR PRN #15 tab PRN Reason: Mild Pain Continue Methylphenidate HCl [Concerta] 36 mg PO DAILY PRN PRN Reason: HIGH STRESS LEVEL Varenicline [Chantix] 1 mg PO HS Methylphenidate HCl [Concerta] 18 mg PO DAILY ALPRAZolam [Xanax] 1 mg PO Q8HR PRN PRN Reason: Anxiety Discharge Medication List Methylphenidate HCl [Concerta] 36 mg PO DAILY PRN 06/22/16 [History] ALPRAZolam [Xanax] 1 mg PO Q8HR PRN 04/09/17 [History] Methylphenidate HCl [Concerta] 18 mg PO DAILY 04/09/17 [History] Varenicline [Chantix] 1 mg PO HS 04/09/17 [History] HYDROcodone/APAP 5-325MG [Choudrant 5-325] 1 tab PO Q4HR PRN #15 tab 04/11/17 [Rx] Follow up Appointment(s)/Referral(s): Emily Fernandez MD [STAFF PHYSICIAN] - 04/18/17 10:00 am Alexandre Cano MD [Primary Care Provider] - ( follow up in 1-2 days) Activity/Diet/Wound Care/Special Instructions: OK to shower . No soaking bath. No heavy lifting more than 10 lbs for 6 weeks post surgery. No driving while taking narcotics for pain. May use ice packs for local pain relief Take Motrin 600 mg po TID after meals if pain is not controlled Use incentive spirometry 10 times an hour while awake Discharge Disposition: HOME SELF-CARE
[2017-04-11 14:47] VITALS: BP 133/86; PULSE 86; RESP 16; TEMP 97.9
== END 2017-04-11 18:20 | disposition home or self-care (01) ==
LOC: EC 18:39 → 3SUR 19:47 → INTOOBSV 19:47
PROVIDERS: ADMIT Surgery; ATTEND Surgery
DX: K80.12 Calculus of gallbladder with acute and chronic cholecystitis without obstruction (principal); F41.9 Anxiety disorder, unspecified; F32.9 Major depressive disorder, single episode, unspecified; E66.9 Obesity, unspecified; K76.0 Fatty (change of) liver, not elsewhere classified; R41.840 Attention and concentration deficit; F17.200 Nicotine dependence, unspecified, uncomplicated; Z82.49 Family history of ischemic heart disease and other diseases of the circulatory system; Z79.899 Other long term (current) drug therapy; Z88.1 Allergy status to other antibiotic agents; Z88.0 Allergy status to penicillin; Z88.8 Allergy status to other drugs, medicaments and biological substances; Z68.34 Body mass index [BMI] 34.0-34.9, adult
CPT/HCPCS: 47562; 96376 ×2; 96365; 96366; 96367; 96372; 96375 ×2; 96361; 99284; 36415; 81025 ×2; 88304; 80053 ×2; 82150 ×2; 83690 ×2; 85025 ×2; 85610; 85730; 81001; G0378 ×4; J2250; J1644; J2710; J2405 ×2; J2001; J3010; J1170 ×3; J1956; J2543 ×2; J1100; J0330; J2704

== ENCOUNTER → 2017-08-01 | Outpatient (CLI) | payer BC ==
--- NOTE | 2017-08-01 14:43 | MM ---
Reason for exam: follow-up at short interval from prior study. Last mammogram was performed 9 months ago. History: Family history of breast cancer in maternal cousin at age 40 and breast cancer in paternal grandmother at age 45. Benign US biopsy breast VAD RT of the right breast, November 07, 2016. Benign MG stereo VAD BX RT of the right breast, November 04, 2016. Physical Findings: Nurse did not find any significant physical abnormalities on exam. MG 3D Diag Mammo W/Cad MAIKEL Bilateral CC and MLO view(s) were taken. Prior study comparison: October 26, 2016, right breast MG 3d diag mammo w/cad RT. The breast tissue is heterogeneously dense. This may lower the sensitivity of mammography. No suspicious calcifications are seen. Previous mammotome biopsy in the right breast. No significant new findings when compared with previous films. These results were verbally communicated with the patient and result sheet given to the patient on 08/01/17. ASSESSMENT: Benign, BI-RAD 2 RECOMMENDATION: Routine screening mammogram of both breasts in 3 months. Back on schedule for October 2017.
== END | disposition home or self-care (01) ==
LOC: RADMAMWWP 13:03
PROVIDERS: ATTEND Internal Medicine Geriatric Medicine
DX: N64.9 Disorder of breast, unspecified (principal)
CPT/HCPCS: G0204; G0279

== ENCOUNTER → 2018-03-15 | Outpatient (CLI) | payer BC ==
--- NOTE | 2018-03-15 16:07 | CT ---
EXAMINATION TYPE: CT brain wo con DATE OF EXAM: 03/15/2018 COMPARISON: None HISTORY: 42-year-old female left-sided numbness, left facial weakness, Severe ORDONEZ x3 weeks TECHNIQUE: Examination was done in axial plane without intravenous contrast. Coronal and sagittal r econstructions performed. CT DLP: 1007.6 mGycm Automated exposure control for dose reduction was used. FINDINGS: There is no evidence of acute intracranial hemorrhage, acute ischemic changes, mass, mass-effect, or extra-axial fluid collection. There is no effacement of cerebral sulci or basal subarachnoid cister ns. There is no hydrocephalus. There is no midline shift. Scott-white matter distinction is preserv ed. Partially empty sella incidentally noted. Paranasal sinuses and mastoid air cells are well pneumatized. Orbits and globes are intact. IMPRESSION: No acute intracranial abnormality seen.
== END | disposition home or self-care (01) ==
LOC: RADCTMAIN 15:48
PROVIDERS: ATTEND Family Medicine
DX: R41.0 Disorientation, unspecified (principal); R51 Headache; R20.0 Anesthesia of skin; H53.9 Unspecified visual disturbance
CPT/HCPCS: 70450

== ENCOUNTER → 2018-03-20 | Outpatient (CLI) | payer BC | END | disposition home or self-care (01) | LOC: RADXRMAIN 16:40 | PROVIDERS: ATTEND Family Medicine | DX: Z53.9 Procedure and treatment not carried out, unspecified reason (principal) ==

== ENCOUNTER → 2018-04-05 | Outpatient (CLI) | payer BC ==
--- NOTE | 2018-04-06 08:46 | XR ---
EXAMINATION TYPE: XR cervical spine comp DATE OF EXAM: 04/05/2018 CLINICAL HISTORY: pain COMPARISON: NONE TECHNIQUE: Frontal, lateral, oblique, swimmers, and open mouth view of the cervical spine are obtaine d. FINDINGS: The cervical spine is visualized in its entirety from C1 thru the top of T1 level. It is s atisfactory in alignment without evidence of acute fracture or dislocation. The pre-vertebral soft t issue appears within normal limits. Disc spaces are well preserved. The C1-C2 articulation is unremar kable on the open mouth view. The oblique images are within normal limits. IMPRESSION: No acute fracture or dislocation is seen in the cervical spine. ICD 10 NO FRACTURE, INITIAL EVALUATION
== END | disposition home or self-care (01) ==
LOC: RADXRMAIN 20:12
PROVIDERS: ATTEND Family Medicine
DX: M54.2 Cervicalgia (principal)
CPT/HCPCS: 72050

== ENCOUNTER → 2018-08-02 | Outpatient (CLI) | payer BC ==
--- NOTE | 2018-08-02 16:13 | CT ---
EXAMINATION TYPE: CT abdomen pelvis w con DATE OF EXAM: 08/02/2018 HISTORY: Epigastric and back pain. CT DLP: 1789.1mGycm Automated Exposure Control for Dose Reduction was Utilized. CONTRAST: CT scan of the abdomen and pelvis is performed with IV Contrast, patient injected with 100ml mL of Is ovue M300. COMPARISON: Complete abdominal ultrasound March 20, 2017 FINDINGS: LUNG BASES: No significant abnormality is appreciated. LIVER/GB: Liver is heterogeneously hypodense consistent with diffuse fatty infiltration which correla jadiel with comparison ultrasound. Gallbladder is now surgically absent. PANCREAS: No significant abnormality is seen. SPLEEN: No significant abnormality is seen. ADRENALS: No significant abnormality is seen. KIDNEYS: Symmetric cortical medullary uptake and excretion without hydronephrosis is present bilatera lly. BOWEL: The oral contrast reaches level of cecum which is slightly wandering into the anterior right m id abdomen. No suspicious small or large bowel dilatation is present. Small hiatal hernia is seen. Ca nnot exclude small colonic lipoma sigmoid colon axial image 70 with 1 cm oval low dense lesion noted. UTERUS/ADNEXA: Heterogeneous anteverted uterus is seen. Both ovaries are identified, left slightly la rger than right in size. Ovaries can be better evaluated with dedicated pelvic ultrasound if desired. LYMPH NODES: No greater than 1cm abdominal or pelvic lymph nodes are appreciated. OSSEOUS STRUCTURES: Moderate disc space narrowing with vacuum disc phenomenon lumbosacral junction is present. Posterior spur disc complex is seen. OTHER: No significant additional abnormality is seen. IMPRESSION: No significant acute finding is seen to account for patient's clinical symptoms.
== END | disposition home or self-care (01) ==
LOC: RADCTMAIN 14:11
PROVIDERS: ATTEND Internal Medicine
DX: R10.13 Epigastric pain (principal)
CPT/HCPCS: 74177; Q9967

== ENCOUNTER → 2019-04-30 | Outpatient (CLI) | payer BC ==
--- NOTE | 2019-05-01 14:36 | MM ---
Reason for exam: screening (asymptomatic). Last mammogram was performed 1 year and 9 months ago. History: Family history of breast cancer in maternal cousin at age 40 and breast cancer in paternal grandmother at age 45. Benign US biopsy breast VAD RT of the right breast, November 07, 2016. Benign MG stereo VAD BX RT of the right breast, November 04, 2016. Physical Findings: A clinical breast exam by your physician is recommended on an annual basis and results should be correlated with mammographic findings. MG 3D Screening Mammo W/Cad Bilateral CC and MLO view(s) were taken. Prior study comparison: August 01, 2017, bilateral MG 3d diag mammo w/cad MAIKEL. October 26, 2016, right breast MG 3d diag mammo w/cad RT. The breast tissue is heterogeneously dense. This may lower the sensitivity of mammography. Previous mammotome biopsy in the right breast. No significant changes when compared with prior studies. ASSESSMENT: Benign, BI-RAD 2 RECOMMENDATION: Routine screening mammogram of both breasts in 1 year.
== END | disposition home or self-care (01) ==
LOC: RADMAMWWP 11:14
PROVIDERS: ATTEND Family Medicine
DX: Z12.31 Encounter for screening mammogram for malignant neoplasm of breast (principal); M79.675 Pain in left toe(s)
CPT/HCPCS: 77063; 77067; 84550

== ENCOUNTER → 2021-06-28 | Outpatient (CLI) | payer BC ==
--- NOTE | 2021-06-29 11:53 | MM ---
Reason for exam: screening (asymptomatic). Last mammogram was performed 2 years and 2 months ago. History: Family history of breast cancer in maternal cousin at age 40 and breast cancer in paternal grandmother at age 45. Benign US biopsy breast VAD RT of the right breast, November 07, 2016. Benign MG stereo VAD BX RT of the right breast, November 04, 2016. Physical Findings: A clinical breast exam by your physician is recommended on an annual basis and results should be correlated with mammographic findings. MG 3D Screening Mammo W/Cad Bilateral CC and MLO view(s) were taken. Prior study comparison: April 30, 2019, bilateral MG 3d screening mammo w/cad. August 01, 2017, bilateral MG 3d diag mammo w/cad MAIKEL. The breast tissue is heterogeneously dense. This may lower the sensitivity of mammography. Finding #1: There is stable architectural distortion in the anterior position of the right breast. Finding #2: There are typically benign round, diffuse/scattered and grouped calcifications in both breasts. Previous mammotome biopsy in the right breast. Right increased grouped indistinct calcifications middle depth centrally. ASSESSMENT: Incomplete: need additional imaging evaluation, BI-RAD 0 RECOMMENDATION: Special view mammogram of the right breast. [facility] will attempt to contact patient to return for supplemental views.
== END | disposition home or self-care (01) ==
LOC: RADMAMWWP 13:08
PROVIDERS: ATTEND Obstetrics & Gynecology
DX: Z12.31 Encounter for screening mammogram for malignant neoplasm of breast (principal); Z80.3 Family history of malignant neoplasm of breast
CPT/HCPCS: 77063; 77067

== ENCOUNTER → 2021-06-30 | Outpatient (CLI) | payer BC ==
--- NOTE | 2021-06-30 11:30 | MM ---
Reason for exam: additional evaluation requested from abnormal screening. Last mammogram was performed less than 1 month ago. History: Family history of breast cancer in maternal cousin at age 40 and breast cancer in paternal grandmother at age 45. Benign US biopsy breast VAD RT of the right breast, November 07, 2016. Benign MG stereo VAD BX RT of the right breast, November 04, 2016. Physical Findings: Nurse did not find any significant physical abnormalities on exam. MG 3D Work Up W/Cad RT CC with magnification, MLO with magnification, and LM view(s) were taken of the right breast. Prior study comparison: June 28, 2021, bilateral MG 3d screening mammo w/cad. April 30, 2019, bilateral MG 3d screening mammo w/cad. August 01, 2017, bilateral MG 3d diag mammo w/cad MAIKEL. The breast tissue is heterogeneously dense. This may lower the sensitivity of mammography. Grouped heterogeneous and amorphous 12 o'clock calcifications. Biopsy recommended. These results were verbally communicated with the patient and result sheet given to the patient on 06/30/21. ASSESSMENT: Suspicious, BI-RAD 4 RECOMMENDATION: Stereotactic core biopsy of the right breast. Called Dr. Sanders's office with mammographic findings and has scheduled an appointment for the patient for 08/26/20 at 1:[address] Madsen. Biopsy scheduled for 08/27/20 at 8:00. PRELIMINARY REPORT CALLED AND FAXED TO DR. MADSEN ON 06/30/21.
== END | disposition home or self-care (01) ==
LOC: RADMAMWWP 07:48
PROVIDERS: ATTEND Obstetrics & Gynecology
DX: R91.1 Solitary pulmonary nodule (principal)
CPT/HCPCS: 77061; 77065

== ENCOUNTER → 2021-07-29 | Outpatient (CLI) | payer BC ==
[2021-07-29 10:31] VITALS: BP 138/94; PULSE 76; RESP 16; TEMP 98.1
--- NOTE | 2021-07-29 11:04 | P.GSHP ---
History of Present Illness H&P Date: 07/29/21 Chief Complaint: abnormal right breast mammogram Tequila is a 45 year old white female seen in consultation for Dr. Sanders regarding a right breast mammographic abnormality. . Routine screening mammogram on [id number] and additional views of the right breast for recommended. These were performed on [id number] and grouped heterogeneous calcifications were seen at the 12 o'clock position and biopsy was recommended. The patient does not note any lumps masses or nodules of concern in either breast. She has had a prior core biopsy of the right breast which was benign in 2017. She has not had any trauma or infection in the breast. She is not complaining of any pain in he r breast. Patient has had BRCA testing performed secondary to strong family history of breast cancer her testing was negative. 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 polycystic ovarian disease chronic inflamation Psoriasis Social History; nicotine: 2PP/week alcohol: none drugs: none - Constitutional Constitutional: Reports fever, Reports sweats - EENT Eyes: bilateral blurred vision, denies pain Ears: deny: decreased hearing, tinnitus Ears, nose, mouth and throat: Denies headache, Denies sore throat - Breasts Breasts: bilateral: as per HPI - Cardiovascular Cardiovascular: Denies chest pain, Denies shortness of breath - Respiratory Comment: smoker - Gastrointestinal Gastrointestinal: Reports as per HPI, Reports diarrhea, Denies abdominal pain, Denies nausea, Denies vomiting - Genitourinary (Female) Genitourinary: Denies dysuria, Denies hematuria - Menstruation Menstruation: Reports as per HPI - Musculoskeletal Musculoskeletal: Reports as per HPI - Integumentary Comment: Psoriasis Integumentary: Reports as per HPI - Neurological Comment: hands and shoulders numb and week Neurological: Reports as per HPI - Psychiatric Psychiatric: Denies anxiety, Denies depression - Endocrine Endocrine: Denies fatigue, Denies weight change - Hematologic/Lymphatic Comment: none - Allergic/Immunologic Allergic/Immunologic: Reports as per HPI Past Medical History Past Medical History: No Reported History Additional Past Medical History / Comment(s): CSID History of Any Multi-Drug Resistant Organisms: None Reported Past Surgical History: Cholecystectomy, Orthopedic Surgery Additional Past Surgical History / Comment(s): bladder sling,carpel tunnel,dental implant,right knee laproscopic,bilateral breast biopsy with right titanium pin implant Past Anesthesia/Blood Transfusion Reactions: No Reported Reaction Additional Past Anesthesia/Blood Transfusion Reaction / Comment(s): no history of blood transfusion Past Psychological History: Anxiety, Depression Smoking Status: Current every day smoker Past Alcohol Use History: None Reported Past Drug Use History: None Reported - Past Family History Mother Family Medical History: Diabetes Mellitus, Hypertension Additional Family Medical History / Comment(s): total hysterectomy- "precancerous" Father Family Medical History: Myocardial Infarction ([place]) Medications and Allergies Home Medications Medication Instructions Recorded Confirmed Type Ascorbic Acid [Vitamin C] 500 mg PO DAILY 07/27/21 07/29/21 History Cholecalciferol (Vitamin D3) 4,000 unit PO DAILY 07/27/21 07/29/21 History [Vitamin D3 (500 Iu/5 ML)] Echinacea Purpurea Extract 125 mg PO DAILY 07/27/21 07/29/21 History [Echinacea] Turmeric Root Extract [Turmeric] 500 mg PO DAILY 07/27/21 07/29/21 History Zinc 50 mg PO DAILY 07/27/21 07/29/21 History Allergies Allergy/AdvReac Type Severity Reaction Status Date / Time loracarbef [From Lorabid] Allergy Unknown Verified 07/29/21 10:23 metronidazole [From Flagyl] Allergy Swelling Verified 07/29/21 10:23 amoxicillin AdvReac Nausea & Verified 07/29/21 10:23 Vomiting Surgical - Exam Vital Signs Temp Pulse Resp BP 98.1 F 76 16 138/94 07/29/21 10:26 07/29/21 10:26 07/29/21 10:26 07/29/21 10:26 BMI 35.9 - General no distress - Eyes normal ocular movement - ENT no hearing loss, no congestion - Neck trachea midline - Respiratory normal respiratory effort, clear to auscultation - Cardiovascular Rhythm: regular Heart Sounds: normal: S1, S2 - Abdomen Abdomen: soft, non tender, no guarding, no rigid, no rebound - Integumentary normal turgor - Neurologic no disoriented, no combative - Musculoskeletal normal gait, normal posture - Psychiatric oriented to time, oriented to person, oriented to place, speech is normal, memory intact Breast Exam: BRA: 42D inspection: grade 3 ptosis palpation: right breast: Positional exam fibrocystic changes no dominant masses or nodules of concern Right axilla: No adenopathy of concern Left breast: Positional exam fibrocystic changes no dominant mass or not his of concern Left axilla: No adenopathy of concern Results Mammogram reviewed with Dr. Cowan Assessment and Plan Assessment: Impression: 1. Abnormal right breast mammogram/microcalcifications of concern 12 o'clock position 2. Fibrocystic breast changes 3. History of enzyme abnormality with difficulty digesting sucrose 4. Nicotine use 5. Family history of breast cancer 6. Patient has had genetic testing which is negative Plan: 1. Stereotactic core biopsy right breast Risks and benefits of procedure discussed with the patient. Risks include but are not limited to bleeding, infection, reaction to the anesthetic. She understands and wishes to proceed. Alternatives such as watchful waiting or dissection the operating room or discussed but not recommended. Patient schedule cystoscopy tactic core biopsy tomorrow.
== END ==
LOC: WWCWWP 09:57
PROVIDERS: ATTEND Surgery
DX: R92.8 Other abnormal and inconclusive findings on diagnostic imaging of breast (principal); R92.0 Mammographic microcalcification found on diagnostic imaging of breast; N60.11 Diffuse cystic mastopathy of right breast; N60.12 Diffuse cystic mastopathy of left breast; Z72.0 Tobacco use; Z86.39 Personal history of other endocrine, nutritional and metabolic disease; Z80.3 Family history of malignant neoplasm of breast; Z88.1 Allergy status to other antibiotic agents; F41.9 Anxiety disorder, unspecified; F32.A Depression, unspecified

== ENCOUNTER → 2021-07-30 | Day surgery (SDC) | payer BC ==
[2021-07-30 07:51] VITALS: BP 132/88; PULSE 69; RESP 16; TEMP 97.6
--- NOTE | 2021-07-30 08:42 | P.PCN ---
Date of Procedure: 07/30/21 Preoperative Diagnosis: Microcalcifications of concern right breast 12:00 Postoperative Diagnosis: Same Procedure(s) Performed: Stereotactic core biopsy right breast Anesthesia: local Surgeon: Ellie Madsen Pathology: other (Breast tissue/microcalcifications of concern noted in specimen) Condition: stable Disposition: same day Indications for Procedure: Microcalcifications of concern right breast Operative Findings: Microcalcifications of concern noted in radiograph of specimen Description of Procedure: Tequila is a 45-year-old white female who was noted to have microcalcifications of concern in the right breast at the 12 o'clock position. Stereotactic core biopsy was recommended. Risks and benefits of the procedure were discussed with the patient. Risks include but are not limited to bleeding, infection, or reaction to the anesthetic. Additional the alternatives such as watchful waiting or resection in the operating room were discussed but not recommended. The patient agreed to stereotactic core biopsy. The patient was taken to the stereotactic core biopsy room. She was positioned prone on the Lo-rad table. A CC from above approach was utilized. A fire protection engineering technician film was obtained. The microcalcifications of concern were identified and targeted after a stereo pair was obtained. The breast was prepped using Betadine. 20 mL of 1% lidocaine were used to anesthetize the breast. A 9-gauge vacuum-assisted core rotating biopsy needle was driven to the correct coordinates. A prefire film was obtained. The needle was noted to be in the correct location. The needle was fired. A post-fire film was obtained. The needle was noted to be in the correct location. 13 specimens were obtained. The specimens were radiographed. The calcifications of concern were noted to be present in the specimen. A secure abbey Top-Hat clip was placed. The clip was noted to be in the correct location. The patient tolerated the procedure in stable condition. The specimen was sent to pathology. The patient will follow-up with Dr. Guevara.
--- NOTE | 2021-07-30 10:13 | MM ---
Tequila is a 45-year-old white female who was noted to have microcalcifications of concern in the right breast at the 12 o'clock position. Stereotactic core biopsy was recommended. Risks and benefits of the procedure were discussed with the patient. Risks include but are not limited to bleeding, infection, or reaction to the anesthetic. Additional the alternatives such as watchful waiting or resection in the operating room were discussed but not recommended. The patient agreed to stereotactic core biopsy. The patient was taken to the stereotactic core biopsy room. She was positioned prone on the Lo-rad table. A CC from above approach was utilized. A cyber security consultant film was obtained. The microcalcifications of concern were identified and targeted after a stereo pair was obtained. The breast was prepped using Betadine. 20 mL of 1% lidocaine were used to anesthetize the breast. A 9-gauge vacuum-assisted core rotating biopsy needle was driven to the correct coordinates. A prefire film was obtained. The needle was noted to be in the correct location. The needle was fired. A post-fire film was obtained. The needle was noted to be in the correct location. 13 specimens were obtained. The specimens were radiographed. The calcifications of concern were noted to be present in the specimen. A secure abbey Top-Hat clip was placed. The clip was noted to be in the correct location. The patient tolerated the procedure in stable condition. The specimen was sent to pathology. The patient will follow-up with Dr. Guevara. QUEENIE
== END ==
LOC: RADMAMWWP 07:38
PROVIDERS: ATTEND Surgery
DX: N60.11 Diffuse cystic mastopathy of right breast (principal)
CPT/HCPCS: 19081; A4648; J2001; 88305

== ENCOUNTER → 2022-03-23 | Outpatient (CLI) | payer BC ==
--- NOTE | 2022-03-23 11:46 | MM ---
Reason for Exam: Follow-up at short interval from prior study. Last screening mammogram was performed 9 month(s) ago. Patient History: Menarche at age 8. First Full-Term at age 23. Patient has history of breast feeding. 07/30/2021, Benign Core Biopsy on the right side. 11/07/2016, Benign Core Biopsy on the right side. 11/04/2016, Benign Core Biopsy on the right side. Paternal grandmother had breast cancer, age 45. Maternal cousin had breast cancer, age 40. Last menstrual period: 03/01/2022 Risk Values: Reshma 5 year model risk: 2.1%. NCI Lifetime model risk: 16.6%. Prior Study Comparison: 10/26/2016 Right Diagnostic Mammogram, [facility]. 08/01/2017 Bilateral Diagnostic Mammogram, [facility]. 04/30/2019 Bilateral Screening Mammogram, [facility]. 06/28/2021 Bilateral Screening Mammogram, [facility]. 06/30/2021 Right Diagnostic Mammogram, [facility]. Tissue Density: The breast tissue is heterogeneously dense. This may lower the sensitivity of mammography. Findings: Analyzed By CAD. Pattern appears stable. Multiple core markers are within the bilateral breasts. Scattered benign-appearing stable calcifications are present. No suspicious spiculated or lobular masses, cluster microcalcifications, architectural distortion, or other secondary signs of malignancy are radiographically apparent. Overall Assessment: Benign, BI-RAD 2 Management: Screening Mammogram of both breasts in 1 year. A clinical breast exam by your physician is recommended on an annual basis and results should be correlated with mammographic findings. This exam should not preclude additional follow-up of suspicious palpable abnormalities. Results were given to the patient verbally at the time of exam. Electronically signed and approved by: Aaron East D.O. Radiologis
== END | disposition home or self-care (01) ==
LOC: RADMAMWWP 10:56
PROVIDERS: ATTEND Internal Medicine Geriatric Medicine
DX: R92.1 Mammographic calcification found on diagnostic imaging of breast (principal); Z78.0 Asymptomatic menopausal state; Z80.3 Family history of malignant neoplasm of breast
CPT/HCPCS: 77062; 77066

== ENCOUNTER → 2023-03-29 | Outpatient (CLI) | payer BC ==
--- NOTE | 2023-03-30 07:21 | MM ---
Reason for Exam: Screening (asymptomatic). Last screening mammogram was performed 12 month(s) ago. Patient History: Menarche at age 8. First Full-Term at age 23. Postmenopausal. Patient has history of breast feeding. 07/30/2021, Benign Core Biopsy on the right side. 11/07/2016, Benign Core Biopsy on the right side. 11/04/2016, Benign Core Biopsy on the right side. Paternal grandmother had breast cancer, age 45. Maternal cousin had breast cancer, age 40. Risk Values: Reshma 5 year model risk: 1.9%. NCI Lifetime model risk: 16.2%. Prior Study Comparison: 06/28/2021 Bilateral Screening Mammogram, [facility]. 06/30/2021 Right Diagnostic Mammogram, [facility]. 03/23/2022 Bilateral MG 3D diag mammo w/cad MAIKEL, [facility]. Tissue Density: The breast tissue is heterogeneously dense. This may lower the sensitivity of mammography. Findings: Analyzed By CAD. Right breast biopsy clips. There is no suspicious group of microcalcifications or new suspicious mass in either breast. Overall Assessment: Benign, BI-RAD 2 Management: Screening Mammogram of both breasts in [address] [facility] will attempt to contact patient to return for supplemental views and ultrasound if indicated. Patient should continue monthly self-breast exams. A clinical breast exam by your physician is recommended on an annual basis. This exam should not preclude additional follow-up of suspicious palpable abnormalities. Note on Reshma scores and lifetime risk: 1. A Reshma score greater than 3% is considered moderate risk. If this is the case, consider specialist referral to assess eligibility for a risk reducing agent. 2. If overall lifetime risk for the development of breast cancer is 20% or higher, the patient may qualify for future screening with alternating mammogram and breast MRI. Electronically signed and approved by: Eulogio Mora DO
== END | disposition home or self-care (01) ==
LOC: RADMAMWWP 10:08
PROVIDERS: ATTEND Family Medicine
DX: Z12.31 Encounter for screening mammogram for malignant neoplasm of breast (principal); Z78.0 Asymptomatic menopausal state; Z80.3 Family history of malignant neoplasm of breast
CPT/HCPCS: 77063; 77067

== ENCOUNTER → 2023-06-23 | Outpatient (CLI) | payer BC ==
[2023-06-24 02:06] LABS: Basophils # (A) 0.04 X 10*3/uL (0.00-0.10); Basophils % (A) 0.6 %; Eosinophils % (A) 1.4 %; HCT 44.5 % (37.2-46.3); HGB 14.4 g/dL (12.0-15.0); Lymphocytes # (A) 2.84 X 10*3/uL (0.90-5.00); Lymphocytes % (A) 39.5 %; MCH 29.8 pg (27.0-32.0); MCHC 32.4 g/dL (32.0-37.0); MCV 92.1 FL (80.0-97.0); Mean Platelet Volume 10.5 FL (9.5-12.2); Monocytes # (A) 0.58 X 10*3/uL (0.20-1.00); Monocytes % (A) 8.1 %; NRBC Per 100 WBC 0 X 10*3/uL (0.00-0.01); Neutrophils # (A) 3.62 X 10*3/uL (1.80-7.70); Neutrophils % (A) 50.3 %; Platelet Count 277 X 10*3/uL (140-440); RBC 4.83 X 10*6/uL (4.10-5.20); RDW 12.9 % (11.5-14.5); WBC 7.19 X 10*3/uL (4.50-10.00)
[2023-06-24 02:22] LABS: ALT 110 U/L (8-44); AST 77 U/L (13-35); Albumin 4.6 g/dL (3.8-4.9); Albumin/Globulin Ratio 2.09 Ratio (1.60-3.17); Alkaline Phosphatase 86 U/L (41-126); Blood Urea Nitrogen 14.3 mg/dL (9.0-27.0); Calcium 9.9 mg/dL (8.7-10.3); Carbon Dioxide 26.6 mmol/L (21.6-31.8); Chloride 104 mmol/L (96-109); Globulin 2.2 g/dL (1.6-3.3); Glucose 114 mg/dL (70-110); Potassium 4.2 mmol/L (3.5-5.5); Sodium 142 mmol/L (135-145); Total Bilirubin 0.3 mg/dL (0.3-1.2); Total Protein 6.8 g/dL (6.2-8.2)
== END | disposition home or self-care (01) ==
LOC: LABWHC1 16:03
PROVIDERS: ATTEND Internal Medicine Gastroenterology
DX: K76.0 Fatty (change of) liver, not elsewhere classified (principal)
CPT/HCPCS: 36415; 80053; 85025

== ENCOUNTER → 2024-05-09 | Outpatient (CLI) | payer BC ==
--- NOTE | 2024-05-12 07:45 | MM ---
Reason for Exam: Screening (asymptomatic). Last mammogram was performed 1 year(s) and 1 month(s) ago. Patient History: Menarche at age 8. First Full-Term at age 23. Postmenopausal. Patient has history of breast feeding. 07/30/2021, Benign Core Biopsy on the right side. 11/07/2016, Benign Core Biopsy on the right side. 11/04/2016, Benign Core Biopsy on the right side. Paternal grandmother had breast cancer, age 45. Maternal cousin had breast cancer, age 40. Risk Values: Reshma 5 year model risk: 1.8%. NCI Lifetime model risk: 15.8%. Prior Study Comparison: 06/30/2021 Right Diagnostic Mammogram, [facility]. 03/23/2022 Bilateral MG 3D diag mammo w/cad MAIKEL, [facility]. 03/29/2023 Bilateral MG 3D screening mammo w/cad, [facility]. Tissue Density: The breasts are heterogeneously dense, which may obscure small masses. Findings: Analyzed By CAD. The pattern is symmetrical. Biopsy markers are within the right breast. There are stable calcifications in the right breast. Scattered punctate calcifications are within the left breast No suspicious groups of microcalcifications, spiculated or lobular masses, architectural distortion or other secondary signs of malignancy are mammographically apparent. Overall Assessment: Benign, BI-RAD 2 Management: Screening Mammogram of both breasts in 1 year. A negative mammogram report should not preclude additional follow up of suspicious palpable abnormalities. Patient should continue monthly self breast exam. A clinical breast exam by your physician is recommended on an annual basis and results should be correlated with mammographic findings. Note on Reshma scores and lifetime risk: 1. A Reshma score greater than 3% is considered moderate risk. If this is the case, consider specialist referral to assess eligibility for a risk reducing agent. 2. If overall lifetime risk for the development of breast cancer is 20% or higher, the patient may qualify for future screening with alternating mammogram and breast MRI. [facility], , 05/12/2024 7:43 AM. Electronically signed and approved by: Aaron East D.O. Radiologis
== END | disposition home or self-care (01) ==
LOC: RADMAMWWP 14:55
PROVIDERS: ATTEND Family Medicine
CPT/HCPCS: 77063; 77067

== ENCOUNTER → 2025-01-02 | Outpatient (CLI) | payer BC ==
[2025-01-02 17:03] LABS: INR 0.8 (<1.2); Partial Thromboplastin Time 22.4 sec (22.0-30.0); Prothrombin Time 9.7 sec (10.0-12.5)
[2025-01-02 17:06] LABS: Amphetamine Screen,Urine Not Detected (NotDetected); Barbiturate Screen,Urine Not Detected (NotDetected); Benzodiazepines Screen,Urine Not Detected (NotDetected); Cocaine Screen,Urine Not Detected (NotDetected); Methadone Screen, Urine Not Detected (NotDetected); Opiate Screen,Urine Not Detected (NotDetected); Oxycodone Screen, Urine Not Detected (NotDetected); Phencyclidine Screen,Urine Not Detected (NotDetected); Tricyclic Antidepressant,Urine Not Detected (NotDetected); Urn Cannabinoid Scrn Not Detected (NotDetected)
[2025-01-02 19:45] LABS: HCT 44.8 % (37.2-46.3); HGB 14.9 g/dL (12.0-15.0); MCH 30.3 pg (27.0-32.0); MCHC 33.3 g/dL (32.0-37.0); MCV 91.1 FL (80.0-97.0); Mean Platelet Volume 10.3 FL (9.5-12.2); NRBC Per 100 WBC 0 X 10*3/uL (0.00-0.01); Platelet Count 290 X 10*3/uL (140-440); RBC 4.92 X 10*6/uL (4.10-5.20); RDW 13.1 % (11.5-14.5); WBC 7.68 X 10*3/uL (4.50-10.00)
[2025-01-02 20:19] LABS: Prealbumin 30.1 mg/dL (18.0-42.0)
[2025-01-02 22:26] LABS: % Iron Saturation 20.25 (12.00-45.00); ALT 102 U/L (8-44); AST 76 U/L (13-35); Albumin 4.5 g/dL (3.8-4.9); Albumin/Globulin Ratio 1.88 Ratio (1.60-3.17); Alkaline Phosphatase 82 U/L (41-126); BUN/Creat Ratio 21.71 Ratio (12.00-20.00); Blood Urea Nitrogen 15.2 mg/dL (9.0-27.0); Calcium 9.7 mg/dL (8.7-10.3); Carbon Dioxide 22.4 mmol/L (21.6-31.8); Chloride 104 mmol/L (96-109); Chol/HDL Ratio 4.32 Ratio; Globulin 2.4 g/dL (1.6-3.3); Glucose 108 mg/dL (70-110); Iron 82 UG/DL (50-170); LDL Cholesterol,Calculated 128.5 mg/dL (0.0-131.0); Potassium 4.2 mmol/L (3.5-5.5); Sodium 140 mmol/L (135-145); Total Bilirubin 0.3 mg/dL (0.3-1.2); Total Iron Binding Capacity 405 UG/DL (228-460); Total Protein 6.9 g/dL (6.2-8.2)
[2025-01-02 22:41] LABS: Magnesium 1.8 mg/dL (1.5-2.4); Phosphorus 3.9 mg/dL (2.4-5.1)
[2025-01-03 11:26] LABS: Zinc, Serum 53 ug/dL (60-130)
== END | disposition home or self-care (01) ==
LOC: LABWHC1 16:20
PROVIDERS: ATTEND Surgery Plastic and Reconstructive Surgery
DX: E55.9 Vitamin D deficiency, unspecified (principal); E66.01 Morbid (severe) obesity due to excess calories; E89.1 Postprocedural hypoinsulinemia; E45 Retarded development following protein-calorie malnutrition; E44.0 Moderate protein-calorie malnutrition; D50.8 Other iron deficiency anemias; D50.9 Iron deficiency anemia, unspecified; K74.1 Hepatic sclerosis; N19 Unspecified kidney failure; K50.90 Crohn's disease, unspecified, without complications; T56.894A Toxic effect of other metals, undetermined, initial encounter
CPT/HCPCS: 36415; 80053; 80061; 80306; 80323; 82306; 82525; 82607; 82728; 82746; 83036; 83540; 83550; 83735; 83970; 84100; 84134; 84255; 84425; 84443; 84590; 84630; 85027; 85610; 85730; 93005

== ENCOUNTER → 2025-01-27 | Outpatient (CLI) | payer BC ==
[2025-01-28 08:32] VITALS: BMI 37.7
== END ==
LOC: BARWHC3 13:01
PROVIDERS: ATTEND Surgery Plastic and Reconstructive Surgery
DX: E66.01 Morbid (severe) obesity due to excess calories (principal); F17.200 Nicotine dependence, unspecified, uncomplicated; Z71.3 Dietary counseling and surveillance; Z88.0 Allergy status to penicillin; Z88.1 Allergy status to other antibiotic agents; Z88.5 Allergy status to narcotic agent; Z88.8 Allergy status to other drugs, medicaments and biological substances
CPT/HCPCS: 97804; 99211